=== PATIENT | female | born 1955 | race Caucasian/White ===

== ENCOUNTER 2017-07-18 15:59 | Emergency (ER) | payer MEDICAID ==
[~2017-07-18] VITALS: Ht 165.1 cm; Wt 52.2 kg
[~2017-07-18 15:59] MED LIST: ADOXA100 MG PO; AUG500 PO; COL100 PO; FER300 PO; LAC PO; NOR10T PO; PRILOSEC PO; VITC PO
[2017-07-18 18:37] VITALS: BP 124/72
== END 2017-07-18 18:54 | disposition home or self-care (01) ==
LOC: ED 15:59
DX: S43.084A Other dislocation of right shoulder joint, initial encounter (principal); S00.83XA Contusion of other part of head, initial encounter; Z90.49 Acquired absence of other specified parts of digestive tract; W22.09XA Striking against other stationary object, initial encounter; Y93.89 Activity, other specified; Y92.89 Other specified places as the place of occurrence of the external cause; Y99.8 Other external cause status
CPT/HCPCS: J3490

== ENCOUNTER 2017-08-10 09:38 | Emergency (ER) | payer MEDICAID ==
[2017-08-10 09:54] VITALS: BP 144/89
== END 2017-08-10 11:24 | disposition home or self-care (01) ==
LOC: ED 09:38
DX: S46.911A Strain of unspecified muscle, fascia and tendon at shoulder and upper arm level, right arm, initial encounter (principal); X50.0XXA Overexertion from strenuous movement or load, initial encounter; Y93.89 Activity, other specified; Y99.8 Other external cause status; Y92.89 Other specified places as the place of occurrence of the external cause

== ENCOUNTER 2018-06-25 09:07 | Emergency (ER) | payer MEDICAID ==
[~2018-06-25] VITALS: Ht 165.1 cm; Wt 49.2 kg
[2018-06-25 09:15] VITALS: Ht 165.1 cm; Wt 49.2 kg
[2018-06-25 10:26] LABS: CALCIUM 8.7 mg/dL (8.5-10.1); CARBON DIOXIDE 26.7 mmol/L (21-32); CHLORIDE SERUM 108 mmol/L (98-107); CREATININE SERUM 0.8 mg/dL (0.6-1.0); GFR1 > 60 mL/min; GLUCOSE SERUM 115 mg/dL (74-106); POTASSIUM SERUM 4.2 mmol/L (3.5-5.1); SODIUM SERUM 145 mmol/L (136-145)
[2018-06-25 10:36] LABS: ALBUMIN 3.1 g/dL (3.4-5.0); ALKALINE PHOSPHATASE 169 U/L (46-116); ALT/SGPT 45 U/L (14-59); AMYLASE 104 U/L (25-115); AST/SGOT 11 U/L (15-37); LIPASE 218 IU/L (73-393); TOTAL PROTEIN, SERUM 6.4 g/dL (6.4-8.2)
[2018-06-25 10:41] LABS: BASOPHIL % 0.1 % (0-2)
[2018-06-25 10:47] LABS: PLATELET COUNT 466 x10^3mcL (130-400); RED CELL DISTRIBUTION WIDTH 14.9 % (11.5-14.5)
[2018-06-25 12:12] VITALS: BP 108/67
== END 2018-06-25 12:12 | disposition home or self-care (01) ==
LOC: ED 09:07
PROVIDERS: Emergency Medicine
DX: R10.13 Epigastric pain (principal); R10.33 Periumbilical pain; R11.2 Nausea with vomiting, unspecified; Z90.49 Acquired absence of other specified parts of digestive tract
CPT/HCPCS: J1885

== ENCOUNTER 2018-07-27 04:24 | Emergency (ER) | payer MEDICAID ==
[~2018-07-27] VITALS: Ht 157.5 cm; Wt 49.7 kg
[2018-07-27 04:36] VITALS: Ht 157.5 cm; Wt 49.7 kg
[2018-07-27 05:23] LABS: BASOPHIL % 0.2 % (0-2); PLATELET COUNT 373 x10^3mcL (130-400)
[2018-07-27 05:24] LABS: RED CELL DISTRIBUTION WIDTH 14.6 % (11.5-14.5)
[2018-07-27 05:34] LABS: CALCIUM 8.7 mg/dL (8.5-10.1); CARBON DIOXIDE 26.8 mmol/L (21-32); CHLORIDE SERUM 108 mmol/L (98-107); CREATININE SERUM 0.8 mg/dL (0.6-1.0); GFR1 > 60 mL/min; GLUCOSE SERUM 104 mg/dL (74-106); POTASSIUM SERUM 3.2 mmol/L (3.5-5.1); SODIUM SERUM 144 mmol/L (136-145)
[2018-07-27 05:38] LABS: ALKALINE PHOSPHATASE 106 U/L (46-116); ALT/SGPT 18 U/L (14-59); AST/SGOT 13 U/L (15-37); BILIRUBIN TOTAL 0.23 mg/dL (0.20-1.00); LIPASE 93 IU/L (73-393); TOTAL PROTEIN, SERUM 6.6 g/dL (6.4-8.2)
[2018-07-27 05:39] LABS: ALBUMIN 3.3 g/dL (3.4-5.0)
[2018-07-27 05:54] LABS: microscopic required? YES; urine erythrocyte 2+ (NEGATIVE)
[2018-07-27 09:38] VITALS: BP 122/73
== END 2018-07-27 09:38 | disposition home or self-care (01) ==
LOC: ED 04:24
PROVIDERS: Emergency Medicine
DX: R10.13 Epigastric pain (principal); R11.10 Vomiting, unspecified; Z90.49 Acquired absence of other specified parts of digestive tract
CPT/HCPCS: 83880; J1885; J7030

== ENCOUNTER 2018-09-05 21:03 | Emergency (ER) | payer MEDICAID ==
[~2018-09-05] VITALS: Ht 165.1 cm; Wt 49.0 kg
[2018-09-05 22:09] LABS: UA SPECIFIC GRAVITY 1.015 (1.005-1.035); microscopic required? YES; urine erythrocyte 2+ (NEGATIVE)
[2018-09-05 22:13] LABS: BASOPHIL % 0.3 % (0-2)
[2018-09-05 22:15] LABS: PLATELET COUNT 498 x10^3mcL (130-400); RED CELL DISTRIBUTION WIDTH 15.1 % (11.5-14.5)
[2018-09-05 22:24] LABS: ALBUMIN 3.4 g/dL (3.4-5.0); ALKALINE PHOSPHATASE 102 U/L (46-116); ALT/SGPT 19 U/L (14-59); AMYLASE 82 U/L (25-115); AST/SGOT 11 U/L (15-37); BILIRUBIN TOTAL 0.1 mg/dL (0.20-1.00); CARBON DIOXIDE 29.5 mmol/L (21-32); CHLORIDE SERUM 105 mmol/L (98-107); CREATININE SERUM 0.7 mg/dL (0.6-1.0); GFR1 > 60 mL/min; GLUCOSE SERUM 101 mg/dL (74-106); LIPASE 114 IU/L (73-393); SODIUM SERUM 144 mmol/L (136-145); TOTAL PROTEIN, SERUM 6.7 g/dL (6.4-8.2)
[2018-09-05 22:28] LABS: CALCIUM 8.6 mg/dL (8.5-10.1)
[2018-09-06 00:02] VITALS: BP 112/66
== END 2018-09-06 00:02 | disposition home or self-care (01) ==
LOC: ED 21:03
PROVIDERS: Emergency Medicine
DX: K21.9 Gastro-esophageal reflux disease without esophagitis (principal); E87.6 Hypokalemia
CPT/HCPCS: 36415

== ENCOUNTER 2018-10-26 11:19 | Inpatient (IN) | payer MEDICAID ==
[~2018-10-26] VITALS: Ht 162.6 cm; Wt 49.6 kg
[2018-10-26 11:20] VITALS: Ht 162.6 cm; Wt 49.6 kg
--- NOTE | 2018-10-26 11:22 | NUR ---
PT SENT TO LOBBY TO WAIT FOR AVAILABLE BED. ALERT AND ORIENTED WITH NO DISTRESS
--- NOTE | 2018-10-26 12:06 | NUR ---
MSE COMPLETED BY DR DURÁN PT INST TO PROVIDE CLEAN CATCH URINE SAMPLE PT WILL GO TO BATHROOM AT THIS TIME
--- NOTE | 2018-10-26 12:11 | NUR ---
BLOOD DRAW IN PROGRESS
--- NOTE | 2018-10-26 12:15 | NUR ---
PT TO CT VIA [facility]
[2018-10-26 12:32] LABS: BASOPHIL % 0.1 % (0-2); CALCIUM 9.3 mg/dL (8.5-10.1); CARBON DIOXIDE 32.8 mmol/L (21-32); CHLORIDE SERUM 102 mmol/L (98-107); CREATININE SERUM 0.9 mg/dL (0.6-1.0); GFR1 > 60 mL/min; GLUCOSE SERUM 106 mg/dL (74-106); SODIUM SERUM 141 mmol/L (136-145)
--- NOTE | 2018-10-26 12:35 | NUR ---
PT BACK FROM CT WITH NO INCIDENT. LYING IN BED WITH NO PROBLEM
[2018-10-26 12:36] LABS: ALBUMIN 3.8 g/dL (3.4-5.0); ALKALINE PHOSPHATASE 121 U/L (46-116); ALT/SGPT 17 U/L (14-59); AST/SGOT 11 U/L (15-37); BILIRUBIN TOTAL 0 mg/dL (0.20-1.00); LIPASE 144 IU/L (73-393); TOTAL PROTEIN, SERUM 7.5 g/dL (6.4-8.2)
[2018-10-26 12:41] LABS: PLATELET COUNT 485 x10^3mcL (130-400); RED CELL DISTRIBUTION WIDTH 14.8 % (11.5-14.5)
--- NOTE | 2018-10-26 14:29 | NUR ---
PT RESTING COMFORTABLY NO DISTRESS ASYMPTOMATIC LYING IN BED WARM BLANKET PROVIDED WILL CONTINUE TO MONITOR
--- NOTE | 2018-10-26 15:23 | NUR ---
REPORT GIVEN TO YOVANI LAWSON RESUMING CARE OF PT IN TELE FLOOR
--- NOTE | 2018-10-26 17:11 | NUR ---
2ND ANTIBIOTIC INFUSION STARTED WITH NO PROBLEM. YOVANI RESUMING CARE OF PT.
--- NOTE | 2018-10-26 17:15 | NUR ---
[facility] ACCOMPANIED BY TRANSPORTER. PT A/A/O X 4, CALM, COOPERATIVE. ABLE TO AMBULATE FROM [facility] TO BED WITHOUT GAIT OR BALANCE IMPAIRMENT. DENIES CHEST PAIN OR DISCOMFORT, NO RESPIRATORY DISTRESS NOTED. PT STATES THAT SHE HAS EPIGASTRIC PAIN, SQUEEZING, 8/10, FOR ABOUT 2 DAYS NOW. ALSO STATED THAT SHE HAS HAD THE PAIN INTERMITTENTLY SINCE 2017. PT ORIENTED TO ROOM, BED CONTROLS, CALL LIGHT SYSTEM. SIDE RAILS UP X 2, BED IN LOW POSITION. WILL ENDORSE TO LULU PINA.
--- NOTE | 2018-10-26 17:16 | NUR ---
PT IS STABLE. DENIES ANY PAIN THIS TIME. ADMISSION NURSE IS ADMITTING THE PT. SAFTEY PRECAUTIONS ARE IN PLACE. WILL MONITOR.
--- NOTE | 2018-10-26 17:30 | NUR ---
PER ER NURSE AWARE ABOUT CT ABDOMEN RESULT. PT DENIES PAIN.
[2018-10-26 17:37] VITALS: BP 122/62
[2018-10-26 17:47] VITALS: BP 122/62
--- NOTE | 2018-10-26 19:20 | NUR ---
PT RESTING IN BED COMFORTABLY. DENIES PAIN THIS TIME. NO DISTRESS NOTED. GAVE REPORT TO MONITOR AND STORAGE BIN TENDER NURSE.
--- NOTE | 2018-10-26 19:35 | NUR ---
RECEIVED PATIENT IN BED AWAKE, ALERT AND ORIENTED WITH NO C/O ABDOMINAL DISCOMFORT AT THIS TIME. BREATHING EASY AND NONLABOR SATTING AT 97% RA. ABDOMEN ROUND AND NON TENDER WITH ACTIVE BS. IV TO RAC INTACT AND INFUSING WELL. WILL CONTINUE TO MONITOR.
[2018-10-26 20:58] VITALS: BP 119/69
--- NOTE | 2018-10-27 00:08 | NUR ---
APPEARS SLEEPING THIS TIME BREATHING EASY AND NONLABOR. WILL CONTINUE TO MONITOR.
--- NOTE | 2018-10-27 05:12 | NUR ---
SLEPT AT LONG INTERVALS. DENIES ABDOMINAL DISCOMFORT THE ENTIRE SHIFT. ALL NEEDS ATTENDED.
[2018-10-27 05:13] VITALS: BP 143/81
[2018-10-27 07:12] LABS: BASOPHIL % 0.3 % (0-2); PLATELET COUNT 391 x10^3mcL (130-400)
[2018-10-27 07:13] LABS: CALCIUM 8.3 mg/dL (8.5-10.1); CARBON DIOXIDE 24.3 mmol/L (21-32); CHLORIDE SERUM 109 mmol/L (98-107); CREATININE SERUM 0.7 mg/dL (0.6-1.0); GFR1 > 60 mL/min; GLUCOSE SERUM 105 mg/dL (74-106); POTASSIUM SERUM 4.1 mmol/L (3.5-5.1); SODIUM SERUM 143 mmol/L (136-145)
[2018-10-27 07:56] VITALS: BP 121/70
[2018-10-27 08:05] LABS: RED CELL DISTRIBUTION WIDTH 14.6 % (11.5-14.5)
--- NOTE | 2018-10-27 08:54 | NUR ---
AM MEDS GIVEN. PT TOLERATED WELL. PT C/O PAIN 07/10 MELTON. GIVEN TYLENOL. WILL REASSESS PAIN. IV PATENT AND FLUSHED WELL. NO RESP DISTRESS NOTED. PT DENIES ANY SOB. CALL LIGHT IN REACH. BED IN LOWEST POSITION. WILL CONTINUE TO MONITOR.
--- NOTE | 2018-10-27 09:32 | NUR ---
SPOKE WITH DR. TRUJILLO, STATED HE WOULD CONSULT WITH PT ON 10/28/18
--- NOTE | 2018-10-27 11:24 | NUR ---
PT IN BED RESTING. IV FLAGYLL INFUSING. NO RESP DISTRESS NOTED. PT DENIES ANY PAIN AT THIS TIME. WILL CONTINUE TO MONITOR. CALL LIGHT IN REACH. BED IN LOWEST POSITION.
[2018-10-27 16:01] VITALS: BP 125/61
--- NOTE | 2018-10-27 17:30 | NUR ---
PT RESTING IN BED WITH NO APPARENT SIGNS OF DISTRESS. MED SURG. DENIES CHEST PAIN/PRESSURE. RESPIRATION EQUAL AND UNLABORED ON RA. DENIES SOB. ABD SOFT AND NONTENDER AT THIS TIME. DENIES N/V. PT AMBULATORY WITH BRP. SKIN W/D/I. IV PATENT AND INTACT. BED IN LOW POSITION. CALL LIGHT IN REACH. WILL ENDORSE TO DAVID LAWSON.
--- NOTE | 2018-10-27 19:31 | NUR ---
RECEIVED PATIENT FROM DAY SHIFT RN. PATIENT IS ALERT AND OREINTED X4, MEDSURGE PATIENT DENIES CHEST PAIN OR PRESSURE AT THIS TIME. DENIES HEADACHE OR DIZZINESS. LUNG SOUNDS CLEAR ON RA WITH NO SOB. IV RAC PATENT, SL. PATIENT DENIES ANY ABD PAIN AT THIS TIME. PATIENT AMBULATORY WITH BRP. CALL BUTTON WITHIN REACH. WILL CONTINUE TO MONITOR.
--- NOTE | 2018-10-27 20:30 | NUR ---
INFORMED CONSENT SIGNED BY PATIENT, DR SPOKE TO HER TODAY AND UNDERSTANDS PROCEDURE.
[2018-10-27 21:07] VITALS: BP 109/70
--- NOTE | 2018-10-27 23:46 | NUR ---
PATIENT SITTING ON EDGE OF BED, PATIENT DENIES ANY PAIN AT THIS TIME. WILL CONTINUE TO MONITOR.
--- NOTE | 2018-10-28 02:12 | NUR ---
ROUNDS MADE, PATIENT IS ASLEEP AT THIS TIME NO SIGNS OF DISTRESS NOTED. WILL CONTINUE TO MONITOR.
--- NOTE | 2018-10-28 03:53 | NUR ---
ROUNDS MADE, PATIENT SLEEPING. BREATHING EVEN AND UNLABORED NO SIGNS OF DISTRESS NOTED. WILL CONTINUE TO MONITOR.
--- NOTE | 2018-10-28 05:42 | NUR ---
PATIENT IS ALERT AND OREINTED X4. MED SURG PATIENT. PATIENT DENIES ANY PAIN AT THIS TIME NO SIGNS OF DISTRESS NOTED. PATIENT IV RAC PATENT. LUNG SOUNDS CLEAR ON RA. PATIENT BEEN NPO SINCE MIDNIGHT. LAST BM THIS MORNING. PATIENT IS COMFORTABLE IN BED, SLEPT MOST OF THE NIGHT WITH NO DISTRESS. WILL CONTINUE TO MONITOR AND ENDORSE TO DAY SHIFT RN.
[2018-10-28 06:04] VITALS: BP 114/63
--- NOTE | 2018-10-28 07:29 | NUR ---
PATIENT IS AWAKE IN BED RESTING DENIES ANY PAIN NO SIGNS OF DISTRESS NOTED. ENDORSED CARE TO DAY SHIFT RN, ALL QUESTIONS ADDRESSED.
[2018-10-28 08:15] VITALS: BP 130/68
--- NOTE | 2018-10-28 08:58 | NUR ---
PT RESTING IN BED. GIVEN IV MEDS. IV FLUSHED WELL. NO REDNESS OR SWELLING NOTED. NO ACUTE DISTRESS NOTED. WILL CONTINUE TO MONITOR. BED IN LOWEST POSITON. CALL LIGHT IN REACH.
--- NOTE | 2018-10-28 11:07 | NUR ---
PT OFF THE FLOOR FOR EGD/COLONOSCOPY VIA [facility].
--- NOTE | 2018-10-28 12:29 | NUR ---
PT RECIEVED FROM GI. BP 133/70, HR 69, O2 SAT 97% ON RA, RR 15, TEMP 96.7. NO ACUTE DISTRESS NOTED. RESPIRATIONS EQUAL AND UNLABORED ON RA. WILL CONTINUE TO MONITOR. CALL LIGHT IN REACH. BED IN LOWEST POSITION.
--- NOTE | 2018-10-28 14:21 | NUR ---
PT RESTING IN BED, NO RESPIRATORY DSITRESS NOTED, DENIES PAIN AND NAUSEA. CALL LIGHT WITHIN REACH. ASSISTED WITH USING TELEVISION.
[2018-10-28 17:12] VITALS: BP 135/66
--- NOTE | 2018-10-28 17:15 | NUR ---
PT RESTING IN BED. INQUIRING ON POC. PT UPDATED ON POC TRANSLATED BY ALE ANN. PT VERBALIZED UNDERSTANDING AND HAD NO ADDITIONAL QUESTION. NO ACUTE DISTRESS NOTED. BED IN LOWEST POSITION. CALL LIGHT IN REACH.
--- NOTE | 2018-10-28 17:33 | NUR ---
PT IN BED RESTING. MED SURG. DENIES ANY CHEST PAIN/PRESSURE. RESPIRATION EQUAL AND UNLABORED ON RA. DENIES ANY SOB. PT AMBULATES PER BRP. ABD SOFT, NONTENDER, NONDISTENDED. DENIES ANY ABD PAIN OR N/V. IV SALINE LOCKED. NO REDNESS OR SWELLING NOTED. BED IN LOWEST POSITION. CALL LIGHT IN REACH. WILL ENDORSE TO NIGHT RN.
--- NOTE | 2018-10-28 18:21 | NUR ---
PT IN BED RESTING WATCHING TV. IV SALINE LOCKED. NO REDNESS OR SWELLING NOTED. DENIES ANY PAIN. DENIES N/V. RESPIRATION EQUAL AND UNLABORED ON RA. DENIES ANY SOB. BED IN LOWEST POSITION. CALL LIGHT IN REACH.
--- NOTE | 2018-10-28 19:30 | NUR ---
REC'D REPORT FROM LENA LAWSON TO ASSUME CARE. PT SEEN LYING AWAKE IN BED. PT IS A/O X4, SPEECH CLEAR AND APPROPRIATE. PERRLA NOTED. NO ACUTE DISTRESS NOTED. DENIES ANY PAIN OR DISCOMFORT. NO SOB NOTED, RESPS E/U ON ROOM AIR, CHEST RISE EQUAL AND SYMMETRICAL. LUNG SOUNDS CLEAR RUBEN. ABD FLAT, SOFT, NONTENDER TO TOUCH. BOWEL SOUNDS ACTIVE. SKIN WARM DRY TO TOUCH. PULSES PALPABLE X4. NO EDEMA NOTED. CAP REFILL < 3 SECS. IV TO RAC G20 INTACT AND PATENT, SALINE LOCKED. PT VOIDS FREELY WITH BRP. AMBULATORY WITH STEADY GAIT. SKIN INTACT. PT CALM AND COOPERATIVE IN GOOD SPIRITS. INSTRUCTED TO CALL FOR ANY ASSISTANCE. CALL LIGHT WITHIN REACH. WILL CONTINUE TO MONITOR.
[2018-10-28 21:15] VITALS: BP 142/78
--- NOTE | 2018-10-28 21:43 | NUR ---
PT SLEEPING BUT EASILY AROUSABLE. ALL DUE MEDICATIONS PROVIDED, PT TOLERATED WELL. DENIES ANY PAIN OR DISCOMFORT AT THIS TIME.
--- NOTE | 2018-10-29 03:34 | NUR ---
PT SLEEPING BUT EASILY AROUSABLE. DENIES ANY PAIN AT THIS TIME.
--- NOTE | 2018-10-29 05:30 | NUR ---
ROUNDS MADE, PT SLEEPING BUT EASILY AROUSABLE.
[2018-10-29 06:23] VITALS: BP 117/68
[2018-10-29 06:41] LABS: BASOPHIL % 0.4 % (0-2); PLATELET COUNT 390 x10^3mcL (130-400)
[2018-10-29 07:25] LABS: CALCIUM 8.5 mg/dL (8.5-10.1); CHLORIDE SERUM 107 mmol/L (98-107); CREATININE SERUM 0.7 mg/dL (0.6-1.0); GFR1 > 60 mL/min; GLUCOSE SERUM 105 mg/dL (74-106); POTASSIUM SERUM 3.6 mmol/L (3.5-5.1); SODIUM SERUM 142 mmol/L (136-145)
[2018-10-29 07:35] LABS: RED CELL DISTRIBUTION WIDTH 14.6 % (11.5-14.5)
--- NOTE | 2018-10-29 07:35 | NUR ---
A+OX4, NO RESPRIATORY DISTRESS NOTED, DENIES PAIN, MEDSURG, PULSES MODERATE AND EQUAL RUBEN, NO EDEMA NOTED, LUNG SOUNDS CTA, TOELRATING RA, BOWEL SOUNDS ACTIVE, VOIDING FREELY, AMBUALTORY WITHOUT ASSISTANCE, SKIN INTACT, IV IN RAC SALINE LOCKED, SITE WNL, RBC 3.66, H/H 11.2.
--- NOTE | 2018-10-29 09:13 | NUR ---
PT RESTING IN BED, NO RESPRIATORY DSITRESS NOTED, DENIES ABD PAIN, DENIES N/V/D, CALL LIGHT WITHIN REACH.
[2018-10-29 10:08] VITALS: BP 116/62
--- NOTE | 2018-10-29 12:05 | NUR ---
PT RESTING IN BED, NO RESPIRATORY DISTRESS NOTED, DENIES PAIN. INQUIRING ABOUT DISCHARGE.
[2018-10-29 13:45] VITALS: BP 116/62
--- NOTE | 2018-10-29 14:26 | NUR ---
PT GIVEN DISCHARGE INSTRUCTIONS AND VERBALZIED UNDERSTANDING, IV REMVOED WITH CATHETER INTACT, NO TELE TO REMOVE, PT MEDSURG. PT STATES SHE LIVES CLOSE AND WILL WALK HOME. PT AMBUALTORY INDEPENDENTLY, GAIT STEADY. PER CHARGE NURSE, OKAY FOR PT TO WALK HOME.
--- NOTE | 2018-10-29 14:51 | NUR ---
PT OFF UNIT AMBULATING INDPENDENTLY ESCORTED BY LENA LAWSON WITH ALL BELONGINGS.
== END 2018-10-29 14:59 | disposition home or self-care (01) | DRG 249 ==
LOC: ED 11:19 → MU 14:38
PROVIDERS: Emergency Medicine; Internal Medicine; ADMIT Internal Medicine
PROC: 0DB98ZX Excision of Duodenum, Via Natural or Artificial Opening Endoscopic, Diagnostic (ICD-10-PCS; principal; 2018-10-28 11:00)
PROC: 0DJD8ZZ Inspection of Lower Intestinal Tract, Via Natural or Artificial Opening Endoscopic (ICD-10-PCS; 2018-10-28 11:00)
PROC: 0DB68ZX Excision of Stomach, Via Natural or Artificial Opening Endoscopic, Diagnostic (ICD-10-PCS; 2018-10-28 11:00)
DX: K52.9 Noninfective gastroenteritis and colitis, unspecified (principal); K65.9 Peritonitis, unspecified; K25.4 Chronic or unspecified gastric ulcer with hemorrhage; K31.5 Obstruction of duodenum; K26.4 Chronic or unspecified duodenal ulcer with hemorrhage; K29.50 Unspecified chronic gastritis without bleeding; K25.9 Gastric ulcer, unspecified as acute or chronic, without hemorrhage or perforation; B96.81 Helicobacter pylori [H. pylori] as the cause of diseases classified elsewhere; H11.32 Conjunctival hemorrhage, left eye; K44.9 Diaphragmatic hernia without obstruction or gangrene; K57.30 Diverticulosis of large intestine without perforation or abscess without bleeding; K59.00 Constipation, unspecified; Z68.1 Body mass index [BMI] 19.9 or less, adult
CPT/HCPCS: 43235; 45378; C9113; J1200; J1610; J1956; J2250; J2310; J3010; J3490; J7030

== ENCOUNTER 2019-01-04 08:57 | Emergency (ER) | payer MEDICAID ==
[~2019-01-04] VITALS: Ht 165.1 cm; Wt 51.9 kg
[2019-01-04 09:04] VITALS: Ht 165.1 cm; Wt 51.9 kg
[2019-01-04 10:37] LABS: CALCIUM 8.6 mg/dL (8.5-10.1); CARBON DIOXIDE 29.1 mmol/L (21-32); CHLORIDE SERUM 107 mmol/L (98-107); CREATININE SERUM 0.7 mg/dL (0.6-1.0); GFR1 > 60 mL/min; GLUCOSE SERUM 100 mg/dL (74-106); POTASSIUM SERUM 3.9 mmol/L (3.5-5.1); SODIUM SERUM 143 mmol/L (136-145)
[2019-01-04 10:40] LABS: BASOPHIL % 0.2 % (0-2)
[2019-01-04 10:42] LABS: ALKALINE PHOSPHATASE 106 U/L (46-116); ALT/SGPT 14 U/L (14-59); AST/SGOT 10 U/L (15-37); BILIRUBIN TOTAL 0 mg/dL (0.20-1.00); LIPASE 130 IU/L (73-393); PLATELET COUNT 454 x10^3mcL (130-400); RED CELL DISTRIBUTION WIDTH 15.8 % (11.5-14.5); TOTAL PROTEIN, SERUM 6.6 g/dL (6.4-8.2)
[2019-01-04 10:45] LABS: ALBUMIN 3.3 g/dL (3.4-5.0)
[2019-01-04 11:53] VITALS: BP 136/76
== END 2019-01-04 11:53 | disposition home or self-care (01) ==
LOC: ED 08:57
PROVIDERS: Emergency Medicine
DX: K27.9 Peptic ulcer, site unspecified, unspecified as acute or chronic, without hemorrhage or perforation (principal); Z90.49 Acquired absence of other specified parts of digestive tract
CPT/HCPCS: 36415

== ENCOUNTER 2019-03-12 16:54 | Emergency (ER) | payer MEDICAID ==
[~2019-03-12] VITALS: Ht 165.1 cm; Wt 54.4 kg
[2019-03-12 16:58] VITALS: Ht 165.1 cm; Wt 54.4 kg
[2019-03-12 17:39] LABS: UA SPECIFIC GRAVITY <=1.005 (1.005-1.035); microscopic required? YES; urine erythrocyte 2+ (NEGATIVE)
[2019-03-12 17:41] LABS: BASOPHIL % 0.2 % (0-2); PLATELET COUNT 420 x10^3mcL (130-400); RED CELL DISTRIBUTION WIDTH 15.3 % (11.5-14.5)
[2019-03-12 17:46] LABS: CALCIUM 9.1 mg/dL (8.5-10.1); CARBON DIOXIDE 29.4 mmol/L (21-32); CHLORIDE SERUM 104 mmol/L (98-107); CREATININE SERUM 0.7 mg/dL (0.6-1.0); GFR1 > 60 mL/min; GLUCOSE SERUM 104 mg/dL (74-106); POTASSIUM SERUM 3.2 mmol/L (3.5-5.1); SODIUM SERUM 141 mmol/L (136-145)
[2019-03-12 18:05] LABS: ALBUMIN 3.8 g/dL (3.4-5.0); ALKALINE PHOSPHATASE 110 U/L (46-116); ALT/SGPT 14 U/L (14-59); AST/SGOT 11 U/L (15-37); BILIRUBIN TOTAL 0.2 mg/dL (0.20-1.00); LIPASE 95 IU/L (73-393); TOTAL PROTEIN, SERUM 7.1 g/dL (6.4-8.2)
[2019-03-12 18:43] VITALS: BP 132/74
== END 2019-03-12 18:43 | disposition home or self-care (01) ==
LOC: ED 16:54
PROVIDERS: Emergency Medicine
DX: S39.011A Strain of muscle, fascia and tendon of abdomen, initial encounter (principal); Z90.49 Acquired absence of other specified parts of digestive tract; Z98.890 Other specified postprocedural states; X50.9XXA Other and unspecified overexertion or strenuous movements or postures, initial encounter; Y93.89 Activity, other specified; Y92.89 Other specified places as the place of occurrence of the external cause; Y99.8 Other external cause status
CPT/HCPCS: 36415

== ENCOUNTER 2019-04-03 09:35 | Emergency (ER) | payer MEDICAID ==
[~2019-04-03] VITALS: Ht 162.6 cm; Wt 54.4 kg
[2019-04-03 09:40] VITALS: Ht 162.6 cm; Wt 54.4 kg
[2019-04-03 12:07] LABS: BASOPHIL % 0.3 % (0-2)
[2019-04-03 12:24] LABS: PLATELET COUNT 466 x10^3mcL (130-400)
[2019-04-03 12:29] LABS: ALBUMIN 3.8 g/dL (3.4-5.0); ALKALINE PHOSPHATASE 106 U/L (46-116); ALT/SGPT 24 U/L (14-59); AST/SGOT 9 U/L (15-37); BILIRUBIN TOTAL 0.2 mg/dL (0.20-1.00); CALCIUM 9.2 mg/dL (8.5-10.1); CARBON DIOXIDE 25.9 mmol/L (21-32); CHLORIDE SERUM 107 mmol/L (98-107); CREATININE SERUM 0.7 mg/dL (0.6-1.0); GFR1 > 60 mL/min; GLUCOSE SERUM 105 mg/dL (74-106); LIPASE 118 IU/L (73-393); SODIUM SERUM 142 mmol/L (136-145); TOTAL PROTEIN, SERUM 7.2 g/dL (6.4-8.2)
[2019-04-03 15:15] VITALS: BP 142/77
== END 2019-04-03 15:15 | disposition home or self-care (01) ==
LOC: ED 09:35
PROVIDERS: Emergency Medicine
DX: K52.9 Noninfective gastroenteritis and colitis, unspecified (principal)
CPT/HCPCS: J1885; J2270; J2405; J7030

== ENCOUNTER 2019-07-05 03:08 | Emergency (ER) | payer MEDICAID ==
[~2019-07-05] VITALS: Ht 167.6 cm; Wt 58.2 kg
[2019-07-05 04:14] LABS: CALCIUM 8.1 mg/dL (8.5-10.1); CARBON DIOXIDE 25.7 mmol/L (21-32); CHLORIDE SERUM 107 mmol/L (98-107); CREATININE SERUM 0.8 mg/dL (0.6-1.0); GFR1 > 60 mL/min; GLUCOSE SERUM 99 mg/dL (74-106); POTASSIUM SERUM 3.5 mmol/L (3.5-5.1); SODIUM SERUM 144 mmol/L (136-145)
[2019-07-05 04:24] LABS: ALBUMIN 3.5 g/dL (3.4-5.0); ALKALINE PHOSPHATASE 110 U/L (46-116); ALT/SGPT 13 U/L (14-59); AST/SGOT 6 U/L (15-37); BASOPHIL % 0.4 % (0-2); BILIRUBIN TOTAL 0.13 mg/dL (0.20-1.00); C REACTIVE PROTEIN 0.2 mg/dL (<=0.9); TOTAL PROTEIN, SERUM 6.9 g/dL (6.4-8.2)
[2019-07-05 04:26] LABS: T3 TOTAL 1.16 ng/mL
[2019-07-05 04:26] LABS: microscopic required? YES; urine erythrocyte 1+ (NEGATIVE)
[2019-07-05 04:27] LABS: FREE T4 0.85 ng/dL (0.76-1.46); T4(THYROXINE) 6.2 ug/dL (4.7-13.3)
[2019-07-05 04:29] LABS: PLATELET COUNT 416 x10^3mcL (130-400); RED CELL DISTRIBUTION WIDTH 16.1 % (11.5-14.5)
[2019-07-05 04:39] LABS: CK-MB 0.7 ng/mL (0-3.6)
[2019-07-05 05:56] LABS: ERYTHROCYTE SED RATE 17 mm/hr (0-30)
[2019-07-05 07:40] VITALS: BP 124/80
== END 2019-07-05 07:40 | disposition home or self-care (01) ==
LOC: ED 03:08
PROVIDERS: Specialist
DX: R10.32 Left lower quadrant pain (principal); R10.31 Right lower quadrant pain; Z87.19 Personal history of other diseases of the digestive system; Z90.89 Acquired absence of other organs; Z90.49 Acquired absence of other specified parts of digestive tract
CPT/HCPCS: 84439; J1885; J3010; J7030; Q0092

== ENCOUNTER 2019-08-06 04:16 | Emergency (ER) | payer MEDICAID ==
[~2019-08-06] VITALS: Ht 162.6 cm; Wt 57.8 kg
[2019-08-06 05:17] VITALS: BP 153/90
== END 2019-08-06 05:17 | disposition home or self-care (01) ==
LOC: ED 04:16
DX: R10.11 Right upper quadrant pain (principal); R10.12 Left upper quadrant pain; Z90.49 Acquired absence of other specified parts of digestive tract
CPT/HCPCS: J0500; J1885

== ENCOUNTER 2019-10-21 06:58 | Emergency (ER) | payer MEDICAID ==
[~2019-10-21] VITALS: Ht 157.5 cm; Wt 59.0 kg
[2019-10-21 07:00] VITALS: Ht 157.5 cm; Wt 59.0 kg
[2019-10-21 07:53] LABS: BASOPHIL % 0.4 % (0-2)
[2019-10-21 07:54] LABS: RED CELL DISTRIBUTION WIDTH 16.8 % (11.5-14.5)
[2019-10-21 07:55] LABS: CALCIUM 8.9 mg/dL (8.5-10.1); CHLORIDE SERUM 102 mmol/L (98-107); CREATININE SERUM 0.8 mg/dL (0.6-1.0); GFR1 > 60 mL/min; GLUCOSE SERUM 118 mg/dL (74-106); POTASSIUM SERUM 3.2 mmol/L (3.5-5.1); SODIUM SERUM 139 mmol/L (136-145)
[2019-10-21 08:00] LABS: ALBUMIN 3.8 g/dL (3.4-5.0); ALKALINE PHOSPHATASE 106 U/L (46-116); ALT/SGPT 17 U/L (14-59); AST/SGOT 14 U/L (15-37); BILIRUBIN TOTAL 0.2 mg/dL (0.20-1.00); TOTAL PROTEIN, SERUM 7.4 g/dL (6.4-8.2); URIC ACID 1.8 mg/dL (2.6-6.0)
[2019-10-21 08:09] LABS: C REACTIVE PROTEIN 0.2 mg/dL (<=0.9)
[2019-10-21 08:18] LABS: PLATELET COUNT 565 x10^3mcL (130-400)
[2019-10-21 10:58] VITALS: BP 111/57
== END 2019-10-21 10:58 | disposition home or self-care (01) ==
LOC: ED 06:58
PROVIDERS: Emergency Medicine
DX: M25.061 Hemarthrosis, right knee (principal); M17.11 Unilateral primary osteoarthritis, right knee
CPT/HCPCS: 36415; J2270; Q0092; Q0162

== ENCOUNTER 2019-10-31 04:46 | Emergency (ER) | payer MEDICAID ==
[~2019-10-31] VITALS: Ht 165.1 cm; Wt 63.5 kg
[2019-10-31 05:00] VITALS: Ht 165.1 cm; Wt 63.5 kg
[2019-10-31 08:48] LABS: BASOPHIL % 0.4 % (0-2)
[2019-10-31 08:49] LABS: PLATELET COUNT 474 x10^3mcL (130-400); RED CELL DISTRIBUTION WIDTH 17.3 % (11.5-14.5)
[2019-10-31 09:59] VITALS: BP 129/82
== END 2019-10-31 09:59 | disposition home or self-care (01) ==
LOC: ED 04:46
PROVIDERS: Emergency Medicine
DX: M25.461 Effusion, right knee (principal); M25.561 Pain in right knee; Z90.49 Acquired absence of other specified parts of digestive tract
CPT/HCPCS: 36415; J1885; Q0092

== ENCOUNTER 2020-03-21 12:35 | Emergency (ER) | payer MEDICAID ==
[~2020-03-21] VITALS: Ht 162.6 cm; Wt 57.2 kg
[2020-03-21 12:42] VITALS: Ht 162.6 cm; Wt 57.2 kg
[2020-03-21 14:18] VITALS: BP 132/89
== END 2020-03-21 14:18 | disposition home or self-care (01) ==
LOC: ED 12:35
DX: N20.0 Calculus of kidney (principal); K57.30 Diverticulosis of large intestine without perforation or abscess without bleeding; N39.0 Urinary tract infection, site not specified; Z90.89 Acquired absence of other organs; Z90.49 Acquired absence of other specified parts of digestive tract
CPT/HCPCS: J0696; J1885